=== PATIENT | male | born 1975 | race Caucasian/White ===

== ENCOUNTER 2019-06-16 22:27 | Emergency (ER) | payer MEDICAID ==
[~2019-06-16] VITALS: Ht 172.7 cm; Wt 114.8 kg
[~2019-06-16 22:27] MED LIST: IBUP800T48 PO
[2019-06-16 22:39] VITALS: Ht 172.7 cm; Wt 114.8 kg
[2019-06-17] MEDS ORDERED: KETOROLAC 30 MG INJ IM STA (00:25)
[2019-06-17] MEDS ORDERED: DEXAMETHASONE 10 MG/ML 1 ML INJ IM ONE (00:30)
[2019-06-17] MEDS ORDERED: CYCL10TA7 PO (00:41)
[2019-06-17] MEDS ORDERED: NAPR-985 PO (00:41)
[2019-06-17 02:03] VITALS: BP 161/92; PULSE 71; RESP 18
--- NOTE | 2019-06-17 03:53 | ERD ---
ER Documentation Chief Complaint Chief Complaint pain right knee x 1 day. denies trauma HPI 43-year-old male otherwise healthy presents to the emergency department complaining of right-sided low back pain which is 8/10 in severity, intermittent, worse with walking, with radiation to his right leg, not alleviated with any medication. He denies any loss of bowel or bladder function, fevers, chills, or other symptoms at this time. 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 ROS All systems reviewed and are negative except as per history of present illness. Medications Home Meds Active Scripts Naproxen* (Naprosyn*) 500 Mg Tablet, 500 MG PO BID PRN for PAIN AND/OR INFLAMMATION, #30 TAB Prov:ALISSA BARNARD PA-C 06/17/19 Cyclobenzaprine Hcl* (Cyclobenzaprine Hcl*) 10 Mg Tablet, 10 MG PO TID, #15 TAB Prov:ALISSA BARNARD PA-C 06/17/19 Ibuprofen* (Motrin*) 800 Mg Tab, 800 MG PO Q6H PRN for PAIN AND OR ELEVATED TEMP, #30 TAB Prov:CHAUNCEY KHAN DO 03/29/16 Allergies Allergies: Coded Allergies: No Known Allergy (Unverified , 03/29/16) PMhx/Soc History of Surgery: Yes (Left knee surgery 2003) Hx Alcohol Use: No Hx Substance Use: No Hx Tobacco Use: Yes Smoking Status: Current some day smoker FmHx Family History: No diabetes Physical Exam Vitals Vital Signs Date Temp Pulse Resp B/P (MAP) Pulse Ox O2 O2 Flow FiO2 Time Delivery Rate 06/17/19 98.8 71 18 161/92 95 02:03 (115) 06/16/19 99.2 73 18 180/90 98 22:39 (120) Physical Exam Const: No acute distress Head: Atraumatic Eyes: Normal Conjunctiva ENT: Normal External Ears, Nose and Mouth. Neck: Full range of motion. No meningismus. Resp: Clear to auscultation bilaterally Cardio: Regular rate and rhythm, no murmurs Skin: No petechiae or rashes Back Exam: Tenderness palpation of the paraspinal muscles of the lumbar spine on the right. Positive straight leg raise on the right. Skin: No bruising or rash Compartments: Soft Motor: Normal flexion and extension of bilateral hip/knee/ankle/foot Sensation: Intact to light touch throughout Bones: No midline TTP Ext: No cyanosis, or edema Neur: Awake and alert Psych: Normal Mood and Affect Results 24 hrs Current Medications Medications Dose Sig/Edwin Start Time Status Last (Trade) Ordered Route PRN Stop Time Admin Dose Reason Admin Ketorolac 30 mg ONCE STAT 06/17/19 DC 06/17/19 Tromethamine IM 00:25 00:43 (Toradol) 06/17/19 00:26 10 mg ONCE ONCE 06/17/19 DC 06/17/19 Dexamethasone IM 00:30 00:43 (Decadron) 06/17/19 00:31 Procedures/MDM 43-year-old male presents to the emergency department with signs and symptoms most consistent with right-sided low back pain with sciatica. Patient's musculoskeletal symptoms have stabilized while they have been evaluated in the department and are appropriate for outpatient work up. No evidence of cauda equina, cord compression, infiltrative, or infectious etiol ogy. No evidence of life-threatening pathology at time of discharge. Pt/family in agreement with discharge plan/diagnosis. Pt/family advised to return immediately with any new or worsening symptoms. Follow-up with primary care physician within the next 1-2 days. Patient's blood pressure was elevated (>120/80) but appears stable without evidence of hypertension emergency or urg ency. The patient is to follow-up and pursue outpatient monitoring and therapy with their primary care physician within 1 week and return immediately if they have any new, worsening, or concerning symptoms. Disclaimer: Inadvertent spelling and grammatical errors are likely due to EHR/dictation software use and do not reflect on the overall quality of patient care. Also, please note that the electronic time recorded on this note does not necessarily reflect the actual time of the patient encounter. Departure Diagnosis: Primary Impression: Low back pain with sciatica Condition: Fair Patient Instructions: Back Pain W/ Sciatica [facility] Usted se adan hecho un examen mdico de control que le indica que no est en margy condicin que requiera tratamiento urgente en el Departamento de Emergencia. Un estudio ms profundo y el tratamiento de collins condicin pueden esperar sin ningn riesgo hasta que usted sea atendida/o en el consultorio de collins mdico o margy clnica. Es responsabilidad suya arreglar margy ally para el seguimiento del sarkis. MANEJO DE CONDICIONES NO URGENTES EN EL FUTURO 1) Si usted tiene un mdico de atencin primaria: Usted debera llamar a collins mdico de atencin primaria antes de venir al departamento de emergencia. Despus de las horas de consultorio, collins doctor o collins asociado/a est disponible por telfono. El mdico o enfermero de cuate en el servicio telefnico puede asesorarle por jennifer medio para atender el problema, o sarkis contrario se puede programar margy ally. 2) Si usted no tiene un mdico de atencin primaria: Llame al mdico o clnica de referencia que aparece abajo concha las horas de consultorio para hacer margy ally para que le vean. CLINICAS: [facility] [phone] [facility] [facility] [phone] [facility] [facility] [phone] [facility] [place] [phone] [facility]. [place] [address] [phone] [facility]. [phone] Additional Instructions: Llame al doctor MAANA y manolo margy ALLY PARA DENTRO DE 1-2 LEY.Dgale a la secretaria que nosotros le instruimos hacer esta ally.Avise o llame si collins condicin se empeora antes de la ally. Regresa aqui si peor o no mejor. ALISSA BARNARD PA-C Jun 17, 2019 03:53
== END 2019-06-17 02:05 | disposition home or self-care (01) ==
LOC: FTE 22:27
DX: M54.41 Lumbago with sciatica, right side (principal); F17.210 Nicotine dependence, cigarettes, uncomplicated
CPT/HCPCS: 96372; J1100; J1885; Z7502